=== PATIENT | female | born 1965 | race Caucasian/White ===

== ENCOUNTER 2022-01-12 12:19 | Emergency (ER) | payer BC ==
[2022-01-12 12:56] VITALS: O2SAT 98
[2022-01-12] MEDS ORDERED: Adacel Vial IM ONE ×2 (12:56→13:30)
[2022-01-12] MEDS ORDERED: Zofran 4 MG/2 ML VIAL IV ONE (12:56)
[2022-01-12] MEDS ORDERED: MORPHINE SULFATE 4 MG INJ IV ONE (12:56)
[2022-01-12] MEDS ORDERED: XYLOCAINE 1% HCL 20 ML MDV IJ ONE (12:56)
--- NOTE | 2022-01-12 12:56 | ERPHSYRPT ---
- History of Present Illness Time Seen by Provider: 01/12/22 12:51 Source: patient, family Exam Limitations: no limitations Physician History: pt fell against umbrella stand with large lac left anterior huitron, neurovasc. and nonbtender without luisa stepoff. kristen le to see all tendons without exploration but function is intact with good extension. no other complaints of injury. Method of Injury: fell Occurred: just prior to arrival Quality: constant, sharpness Severity of Pain-Max: moderate Severity of Pain-Current: moderate Lower Extremities Pain: leg: right Modifying Factors: Improves With: immobilization, movement Associated Symptoms: none Allergies/Adverse Reactions: Iodinated Contrast Media Allergy (Verified 01/12/22 13:06) Sulfa (Sulfonamide Antibiotics) Allergy (Verified 01/12/22 13:06) Home Medications: Atorvastatin Calcium [Lipitor] 40 mg PO DAILY 01/12/22 [History] Bupropion HCl Xl 150 mg [Wellbutrin XL 150 MG] 150 mg PO DAILY 01/12/22 [History] Dupilumab [Dupixent Syringe] 300 mg SQ WEEKLY 01/12/22 [History] Levothyroxine Sodium 75 Mcg [Synthroid 75 Mcg] 75 mcg PO DAILY 01/12/22 [History] Liothyronine Sodium 5 mcg PO DAILY 01/12/22 [History] Montelukast Sodium 10 mg [Singulair 10 MG] 10 mg PO DAILY 01/12/22 [History] Potassium Chloride [Klor-Con] 20 meq PO DAILY 01/12/22 [History] Hx Tetanus, Diphtheria Vaccination/Date Given: Yes Hx Influenza Vaccination/Date Given: No Hx Pneumococcal Vaccination/Date Given: No Immunizations Up to Date: No - Review of Systems Constitutional: No Fever, No Chills Eyes: No Symptoms Ears, Nose, & Throat: No Symptoms Respiratory: No Cough, No Dyspnea Cardiac: No Chest Pain, No Edema, No Syncope Abdominal/Gastrointestinal: No Abdominal Pain, No Nausea, No Vomiting, No Diarrhea Genitourinary Symptoms: No Dysuria Musculoskeletal: No Back Pain, No Neck Pain Skin: Other (lac), No Rash Neurological: No Dizziness, No Focal Weakness, No Sensory Changes Psychological: No Symptoms Endocrine: No Symptoms Hematologic/Lymphatic: No Symptoms Immunological/Allergic: No Symptoms All Other Systems: Reviewed and Negative - Past Medical History Pertinent Past Medical History: No - Nursing Vital Signs Nursing Vital Signs: Initial Vital Signs Temperature 98.4 F 01/12/22 12:51 Pulse Rate 72 01/12/22 12:51 Blood Pressure 156/81 01/12/22 12:51 O2 Sat by Pulse Oximetry 98 01/12/22 12:51 Pain Scale Pain Intensity 7 - Physical Exam General Appearance: alert Eyes, Ears, Nose, Throat Exam: moist mucous membranes Neck Exam: non-tender, supple Cardiovascular/Respiratory Exam: chest non-tender, normal breath sounds, regular rate/rhythm, no respiratory distress Gastrointestinal/Abdominal Exam: non-tender, guarding Back Exam: normal inspection, No vertebral tenderness Hips Exam: bilateral: non-tender, normal inspection, normal range of motion, no evidence of injury Legs Exam: right leg: soft tissue tenderness, left leg: normal inspection, no evidence of injury, bilateral leg: non-tender, normal range of motion Knees Exam: bilateral knee: non-tender, normal inspection, normal range of motion, no evidence of injury Ankle Exam: bilateral ankle: non-tender, normal inspection, normal range of motion, no evidence of injury Foot Exam: bilateral foot: non-tender, normal inspection, normal range of motion, no evidence of injury DTR - Lower Extremities Exam: knee (R): 2+, knee (L): 2+, ankle (R): 2+, ankle (L): 2+ Neuro/Tendon Exam: normal sensation, normal motor functions Mental Status Exam: alert, oriented x 3, cooperative Skin Exam: normal color, warm, dry SpO2 Interpretation: normal SpO2: 98 O2 Delivery: Room Air Ordered Tests: Active Orders 24 hr Category Date Time Status IV Insertion STAT Care 01/12/22 12:56 Completed Wound Care ROUTINE Care 01/12/22 12:56 Completed Medication Summary Discontinued Medications Generic Name Dose Route Start Last Admin Trade Name Guido PRN Reason Stop Dose Admin Bupivacaine HCl Confirm 01/12/22 17:05 Bupivacaine Hcl/Pf 50 Mg/10 Ml Vial Administered 01/12/22 17:06 Dose 100 mg IJ .STK-MED ONE Cefazolin Sodium Confirm 01/12/22 17:08 Cefazolin Sodium 1 Gm Vial Administered 01/12/22 17:09 Dose 1 g .ROUTE .STK-MED ONE Cefazolin Sodium Confirm 01/12/22 17:08 Cefazolin Sodium 1 Gm Vial Administered 01/12/22 17:09 Dose 1 g .ROUTE .STK-MED ONE Dexamethasone Sodium Phosphate Confirm 01/12/22 16:20 Dexamethasone Sod Phosphate 4 Mg/Ml Ml Administered 01/12/22 16:21 Dose 4 mg .ROUTE .STK-MED ONE Dexmedetomidine/Sodium Chloride Confirm 01/12/22 16:25 Dexmedetomidine In 0.9 % Nacl 80 Mcg/20 Ml Vial Administered 01/12/22 16:26 Dose 80 mcg IV .STK-MED ONE Diphtheria/Tetanus/Acell Pertussis 0.5 ml 01/12/22 12:56 01/12/22 13:36 Tdap --Diph,Pertuss(Acell),Tet Vac/Pf 0.5 Ml Vial IM 01/12/22 12:57 0.5 ml .ONCE ONE Administration Diphtheria/Tetanus/Acell Pertussis Confirm 01/12/22 13:30 Tdap --Diph,Pertuss(Acell),Tet Vac/Pf 0.5 Ml Vial Administered 01/12/22 13:31 Dose 0.5 ml IM .STK-MED ONE Ephedrine Sulfate Confirm 01/12/22 17:31 Ephedrine Sulfate 50 Mg/Ml Administered 01/12/22 17:32 Dose 50 mg .ROUTE .STK-MED ONE Fentanyl Citrate Confirm 01/12/22 16:20 Fentanyl Citrate 100 Mcg/2 Ml* Vial Administered 01/12/22 16:21 Dose 100 mcg .ROUTE .STK-MED ONE Sodium Chloride 1,000 mls @ 100 mls/hr 01/12/22 13:00 01/12/22 13:35 Sodium Chloride 0.9% 1000 Ml IV 02/11/22 12:59 100 mls/hr .Q10H SERENE Administration Cefazolin Sodium/Dextrose 1 gm in 50 mls @ 100 mls/hr 01/12/22 12:57 01/12/22 14:13 Kefzol 1 Gm/50 Ml Premix IV 01/12/22 13:26 Infused STAT STA Infusion Cefazolin Sodium/Dextrose Confirm 01/12/22 13:29 Kefzol 1 Gm/50 Ml Premix Administered 01/12/22 13:30 Dose 1 gm in 50 mls @ ud IV .STK-MED ONE Acetaminophen Confirm 01/12/22 16:25 Ofirmev Administered 01/12/22 16:26 Dose 100 mls @ ud IV .STK-MED ONE Cefazolin Sodium/Dextrose Confirm 01/12/22 17:11 Cefazolin 2 Gm-D5w Bag Administered 01/12/22 17:12 Dose 2 gm in 50 mls @ ud IV .STK-MED ONE Gentamicin Sulfate/Sodium Chloride Confirm 01/12/22 17:11 Gentamicin 80 Mg/50 Ml Premix Administered 01/12/22 17:12 Dose 80 mg in 50 mls @ ud IV .STK-MED ONE Lactated Ringer's Confirm 01/12/22 18:40 Lactated Ringers Administered 01/12/22 18:41 Dose 1,000 mls @ ud IV .STK-MED ONE Sodium Chloride Confirm 01/12/22 13:29 Sodium Chloride 0.9% 1000 Ml Administered 01/12/22 13:30 Dose 1,000 mls @ ud .ROUTE .STK-MED ONE Ketorolac Tromethamine Confirm 01/12/22 18:39 Ketorolac Tromethamine 30 Mg/Ml Inj Administered 01/12/22 18:40 Dose 30 mg .ROUTE .STK-MED ONE Lidocaine HCl 5 ml 01/12/22 12:56 Lidocaine Hcl 1% 20 Ml Mdv 20 Ml Ml IJ 01/12/22 12:57 STAT ONE Lidocaine HCl Confirm 01/12/22 16:20 Lidocaine - Mpf 2% 5 Ml Vial Administered 01/12/22 16:21 Dose 5 ml .ROUTE .STK-MED ONE Lidocaine HCl Confirm 01/12/22 16:25 Lidocaine Hcl 4 Ml Solution (Lta Kit) Administered 01/12/22 16:26 Dose 4 ml TP .STK-MED ONE Lidocaine HCl Confirm 01/12/22 17:05 Lidocaine Hcl 1% 20 Ml Mdv 20 Ml Ml Administered 01/12/22 17:06 Dose 1 ml .ROUTE .STK-MED ONE Midazolam HCl Confirm 01/12/22 16:20 Midazolam Hcl 2 Mg/2 Ml Vial Administered 01/12/22 16:21 Dose 2 mg .ROUTE .STK-MED ONE Morphine Sulfate 4 mg 01/12/22 12:56 01/12/22 13:37 Morphine Sulfate 4 Mg/Ml Injection IV 01/12/22 12:57 4 mg STAT ONE Administration Morphine Sulfate Confirm 01/12/22 13:29 Morphine Sulfate 4 Mg/Ml Injection Administered 01/12/22 13:30 Dose 4 mg .ROUTE .STK-MED ONE Ondansetron HCl 4 mg 01/12/22 12:56 01/12/22 13:37 Ondansetron Hcl 4 Mg/2 Ml Vial IV 01/12/22 12:57 4 mg STAT ONE Administration Ondansetron HCl Confirm 01/12/22 13:29 Ondansetron Hcl 4 Mg/2 Ml Vial Administered 01/12/22 13:30 Dose 4 mg .ROUTE .STK-MED ONE Ondansetron HCl Confirm 01/12/22 16:20 Ondansetron Hcl 4 Mg/2 Ml Vial Administered 01/12/22 16:21 Dose 4 mg .ROUTE .STK-MED ONE Ondansetron HCl Confirm 01/12/22 18:38 Ondansetron Hcl 4 Mg/2 Ml Vial Administered 01/12/22 18:39 Dose 4 mg .ROUTE .STK-MED ONE Ondansetron HCl 12 mg 01/12/22 20:27 Zofran 4 Mg/Udtablet Orally Disintegrating PO 02/11/22 20:26 Q6H PRN PRN NAUSEA/VOMITING Oxycodone/Acetaminophen 3 tab 01/12/22 20:25 Oxycodone / Apap 10/325 Mg 1 Tablet PO 01/12/22 20:26 SENT HOME W/ PATIENT STA Oxycodone/Acetaminophen Confirm 01/12/22 20:36 Oxycodone / Apap 10/325 Mg 1 Tablet Administered 01/12/22 20:37 Dose 3 tab .ROUTE .STK-MED ONE Propofol Confirm 01/12/22 16:20 Propofol 10 Mg/Ml 20ml Vial Administered 01/12/22 16:21 Dose 200 mg IV .STK-MED ONE Succinylcholine Chloride Confirm 01/12/22 16:20 Succinylcholine Chloride 200mg/10 Ml Vial Administered 01/12/22 16:21 Dose 80 mg .ROUTE .STK-MED ONE - Progress Progress: improved, re-examined Progress Note: 01/13/22 05:55 Dr. Pretty was contacted and took pt to OR to repair this laceration there then she was discharged to home with prescriptions by him. Discussed with : Other (Dr. Pretty) Will see patient in: ED, other (OR) Counseled pt/family regarding: lab results, diagnosis, need for follow-up - Departure Departure Disposition: Home Clinical Impression: Wound of right lower extremity, Soft tissue injury of right lower leg Condition: Good Critical Care Time: No Referrals: KARLY PEDERSON PIE TOPPER [Primary Care Provider] - Follow up/PCP as directed Instructions: Surgical Wound (DC), Wound Care (DC), Laceration Repair With Stitches (DC) Additional Instructions: followup with PMD and Dr. Pretty return meantime if any concerns.
[2022-01-12] MEDS ORDERED: KEFZOL 1 GM/50 ML PREMIX** 1 GM/50 ML IVPB IV STA (12:57)
[2022-01-12] MEDS ORDERED: Sodium Chloride 0.9% 1000 ML 1,000 ML IV SCH (13:00)
[2022-01-12 13:06] VITALS: BP 156/81
[2022-01-12] MEDS ORDERED: MORPHINE SULFATE 4 MG INJ ONE (13:29)
[2022-01-12] MEDS ORDERED: KEFZOL 1 GM/50 ML PREMIX** 1 GM/50 ML IVPB IV ONE (13:29)
[2022-01-12] MEDS ORDERED: Sodium Chloride 0.9% 1000 ML 1,000 ML ONE (13:29)
[2022-01-12] MEDS ORDERED: Zofran 4 MG/2 ML VIAL ONE ×3 (13:29→18:38)
[2022-01-12] MEDS ORDERED: Versed 2 MG/2 ML Injection ONE (16:20)
[2022-01-12] MEDS ORDERED: Quelicin Fliptop 200 MG/10 ML ONE (16:20)
[2022-01-12] MEDS ORDERED: Xylocaine-Mpf 2% 5 Ml Vial ONE (16:20)
[2022-01-12] MEDS ORDERED: DIPRIVAN 200 MG/20 ML IV ONE (16:20)
[2022-01-12] MEDS ORDERED: Decadron 4 MG INJ ONE (16:20)
[2022-01-12] MEDS ORDERED: SUBLIMAZE 100 MCG/2 ML ONE (16:20)
[2022-01-12] MEDS ORDERED: DEXMEDETOMIDINE 80 MCG/20ML-NS IV ONE (16:25)
[2022-01-12] MEDS ORDERED: Pre-Attached Lta Kit TP ONE (16:25)
[2022-01-12] MEDS ORDERED: OFIRMEV 100 ML IV ONE (16:25)
--- NOTE | 2022-01-12 16:28 | PCM.CONS ---
Podiatry HPI - Consult Date of Consultation Date: 01/12/22 Reason for Consult: Full thickness laceration to right LE Consulting Provider: ANA LUISA DARLING DPM - [facility] History of Present Illness: Stephanie is a very pleasant 56-year-old female accompanied by her and daughter at bedside in the emergency department resting comfortably on presentation. Patient indicates that she was out of the house doing some gardening when she fell onto an umbrella stand resulting in a laceration to the anterior tibial huitron. Patient indicates that the full-thickness flap was flapped proximally. Patient's initial reaction was to return to the house flap the skin back into its original position and wrap it with a kitchen towel. She indicates she has a longstanding history of use of prednisone due to sarcoidosis that is led to weakening of her skin. 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 She currently denies any constitutional symptoms of infection. She denies any other pedal complaints at this time Medications & Allergies Home Medications: Home Medication List Atorvastatin Calcium [Lipitor] 40 mg PO DAILY 01/12/22 [History Confirmed 01/12/22] Bupropion HCl Xl 150 mg [Wellbutrin XL 150 MG] 150 mg PO DAILY 01/12/22 [History Confirmed 01/12/22] Dupilumab [Dupixent Syringe] 300 mg SQ WEEKLY 01/12/22 [History Confirmed 01/12/22] Levothyroxine Sodium 75 Mcg [Synthroid 75 Mcg] 75 mcg PO DAILY 01/12/22 [History Confirmed 01/12/22] Liothyronine Sodium 5 mcg PO DAILY 01/12/22 [History Confirmed 01/12/22] Montelukast Sodium 10 mg [Singulair 10 MG] 10 mg PO DAILY 01/12/22 [History Confirmed 01/12/22] Potassium Chloride [Klor-Con] 20 meq PO DAILY 01/12/22 [History Confirmed 01/12/22] Allergies/Adverse Reactions: Allergies Allergy/AdvReac Type Severity Reaction Status Date / Time Iodinated Contrast Media Allergy Verified 01/12/22 13:06 Sulfa (Sulfonamide Allergy Verified 01/12/22 13:06 Antibiotics) - Past Medical History Past Medical History: No Cardiac History: High Cholesterol Endocrine Medical History: Hypothyroidism Comment: sarcadoisis - Past Surgical History Past Surgical History: Yes Cardiac History: Pacemaker Female Surgical History: Hysterectomy - Social History Smoking Status: Never smoker Exposure to second hand smoke: No Alcohol: Occasionally Drug Use: none Physical Exam - General General Appearance: no apparent distress - Neuro Neurologic: Epicritic and protopathic - Vascular Peripheral Pulses: Posterior tibialis: 2+, Dorsalis-Pedis: 2+ Capillary Refill Time: Immediate Hair Growth: Symmetrical and Bilateral Varicosities: Negtive Edema: None - Muscular Muscle Strength: 5/5 on all 4 quadrants Digital Deformity: no digital deformities - Narrative Narrative Physical Exam: Podiatry Physical Exam Dermatological exam demonstrating a large full-thickness skin flap. V shaped with apex distally. Wound is down to the level of the periosteum of the tibia. Exposed subcutaneous tissue. Light debris identified. Skin quality with thinness of the epidermis secondary to prolonged use of prednisone with evidence of brawny edema to the bilateral lower extremity. Scant varicosities noted Assessment/Plan (1) Noninfected skin tear of right lower extremity Current Visit: Yes Status: Acute Assessment & Plan: Initial patient examination evaluation. Patient's laceration is full-thickness and down to the level of the bone and is a dirty wound due to environmental factors. Patient would benefit from a trip to the OR with irrigation debridement and an attempt at primary closure patient understands that there is still a risk for infection of the extremity given the nature of the wound. Emergency department was quick to administer antibiotics on arrival. Tetanus status was assessed Patient understands all risks complications and benefits of surgical intervention include but not limited to infection, hematoma, seroma, possible delayed healing. Possibility of unsuccessful surgical intervention and possible need for further surgical intervention at a later date. She understands all this and plenty of time was allowed for questions to be asked which were answered to the patient's apparent satisfaction. Patient will be discharged following surgical intervention Code(s): S81.811A - LACERATION W/O FOREIGN BODY, RIGHT LOWER LEG, INIT ENCNTR (2) Wound of right lower extremity Current Visit: Yes Status: Acute Code(s): S81.801A - UNSPECIFIED OPEN WOUND, RIGHT LOWER LEG, INITIAL ENCOUNTER (3) Soft tissue injury of right lower leg Current Visit: Yes Status: Acute Code(s): S89.91XA - UNSPECIFIED INJURY OF RIGHT LOWER LEG, INITIAL ENCOUNTER (4) Chronic steroid use Current Visit: Yes Status: Acute Code(s): [id number] - (5) Sarcoidosis Current Visit: Yes Status: Acute Code(s): D86.9 - SARCOIDOSIS, UNSPECIFIED
[2022-01-12 16:47] VITALS: PULSE 98
[2022-01-12] MEDS ORDERED: BUPIVACAINE 0.5% VIAL IJ ONE (17:05)
[2022-01-12] MEDS ORDERED: XYLOCAINE 1% HCL 20 ML MDV ONE (17:05)
[2022-01-12] MEDS ORDERED: KEFZOL 1 GM ONE ×2 (17:08)
[2022-01-12] MEDS ORDERED: CEFAZOLIN 2 GM-D5W BAG** 2 GM/50 ML ML IV ONE (17:11)
[2022-01-12] MEDS ORDERED: GENTAMICIN 80 MG/50 ML PREMIX*** 80 MG/50 ML ML IV ONE (17:11)
[2022-01-12] MEDS ORDERED: Ephedrine Sulfate 50 MG/ML ONE (17:31)
[2022-01-12] MEDS ORDERED: TORAdol 30 mg Injection ONE (18:39)
[2022-01-12] MEDS ORDERED: Lactated Ringers 1,000 ML IV ONE (18:40)
[2022-01-12] MEDS ORDERED: OXYCODONE-ACETAMINOPHEN 10-325 PO STA (20:25)
[2022-01-12] MEDS ORDERED: ZOFRAN ODT 4 MG PO PRN (20:27)
[2022-01-12] MEDS ORDERED: OXYCODONE-ACETAMINOPHEN 10-325 ONE (20:36)
[2022-01-12] MEDS ORDERED: ZOFRAN ODT 4 MG ONE (20:36)
--- NOTE | 2022-01-14 13:36 | OP ---
SURGERY DATE/TIME: 01/12/2022 1656 PREOPERATIVE DIAGNOSES: 1) Traumatic full thickness skin tear right lower extremity. 2) Exposed bone with laceration. 3) Sarcoidosis. 4) Dirty wound. POSTOPERATIVE DIAGNOSES: 1) Traumatic full thickness skin tear right lower extremity. 2) Exposed bone with laceration. 3) Sarcoidosis. 4) Dirty wound. PROCEDURE: Irrigation, debridement with complex closure of right leg wound. SURGEON: Sukhwinder Griggs DPM. COLLAR FOLDER OPERATOR: None. ANESTHESIA: General. See injectables. HEMOSTASIS: Pressure dressing. ESTIMATED BLOOD LOSS: Less than 10 cc. MATERIALS: 3-0 Nylon, 2-0 Nylon, suture guard. INJECTABLES: 30 cc of 1:1 mixture of 1% lidocaine plain and 0.5% bupivacaine plain injected in a V-block type fashion proximal to the wound. INDICATION FOR SURGERY: Faustina is a very pleasant 56-year-old female who was earlier today planting her garden. The patient went outside of her home and fell forward onto an umbrella stand resulting in a significant laceration to the anterior aspect of the leg. The patient indicates she was able to see bone initially. She took the skin flap and flapped it down and ran back into the house where she applied a dish towel to the lower extremity. The patient was urged to present to the emergency department by her family where at that time a call was made to me. On presentation the patient's wound was flapped over and exposed bone was obvious with some soft tissue contraction of the proximal flap. The flap did appear to have some light debris. The patient is in somewhat of a state of shock and does not realize the degree of the injury that she sustained. However after a discussion with her, she understands that this is a surgical issue due to the fact this is a dirty wound and there is a significant full thickness flap down to the layer of the tibial bone. The patient understands all risks, complications and benefits of surgical intervention at this time including but not limited to possibility of infection, hematoma, seroma, possibility of need for surgical intervention at a later date discussed with her at length due to the possibility of loss of soft tissue secondary to necrosis. Attempts will be made to keep tension off of the healing wound edges. However, noncompliance with the postoperative nonweight bearing protocol is not recommended due to the fact that edema can cause dehiscence of the wound. The best case scenario discussed with the patient if this heals, we do not require a staged procedure of any grafting however this is a possibility. She understands all of this and wishes to proceed with surgical intervention at this time. DESCRIPTION OF PROCEDURE AND FINDINGS: At this time the patient is brought into the OR and placed on the OR table. A general anesthesia was administered until the patient was sedated. The right lower extremity was then prepped and draped in the typical sterile fashion and the extremity was lowered onto the surgical field. At this time the flap was elevated and explored. At this time a combination of rongeurs, curettes, and a 15 blade were utilized to incise the skin edges and debride any of the free portions of debris within the wound as well as incise the edge of the wound for healthy bleeding edge. At this time, a culture was taken and was handed off the field for microbiological assessment. At this time, a 3 liter bag of sterile saline was utilized with a Pulsavac in order to irrigate the area and wash away any of the debris and potential infectious agents. Following this suture guard retention device was applied at the apex and the medial and lateral aspects of the flap. 2-0 Nylon was utilized to reapproximate the edges under no tension whatsoever. The remaining incision was then coapted utilizing a combination of horizontal mattress and simple interrupted sutures in order to reapproximate the skin edges. At this time the leg was cleansed. Iodine was applied to the incision site and a dressing consisting of Betadine, Adaptic, 4x4, Kerlix and GREG was applied to the right lower extremity. The patient was then reversed from anesthesia and returned to postoperative anesthesia care unit with vital signs stable and vascular status intact. The patient handled the procedure as well as the anesthesia without significant complication. Postoperative orders as indicated in the patient's discharge chart.
== END 2022-01-12 19:32 | disposition home or self-care (01) ==
LOC: ED 12:19
DX: S81.812A Laceration without foreign body, left lower leg, initial encounter (principal); W19.XXXA Unspecified fall, initial encounter; D86.9 Sarcoidosis, unspecified
CPT/HCPCS: 36000; 87046; 87070; 87075; 87116; 87205; 87206; 90471; 90715; 96365; 96374; 96375; 99140; 99215; 99284; J0330; J0690; J1100; J1580; J1885; J2250; J2270; J2405; J2704; J3010; Q0162; A9270-GY

== ENCOUNTER 2022-01-31 06:35 | Day surgery (SDC) | payer BC ==
[~2022-01-31 06:35] MED LIST: BUPIVACAINE 0.5% VIAL IJ ONE; Lactated Ringers 1,000 ML IV ONE; XYLOCAINE 1% HCL 20 ML MDV ONE
[2022-01-31] MEDS ORDERED: CEFAZOLIN 2 GM-D5W BAG** 2 GM/50 ML ML IV SCH (07:00)
[2022-01-31] MEDS ORDERED: Lactated Ringers 1,000 ML IV SCH (07:00)
[2022-01-31] MEDS ORDERED: Versed 2 MG/2 ML Injection IV PRN (11:17)
[2022-01-31] MEDS ORDERED: Pre-Attached Lta Kit TP ONE (11:45)
[2022-01-31] MEDS ORDERED: DEXMEDETOMIDINE 80 MCG/20ML-NS IV ONE (11:45)
[2022-01-31] MEDS ORDERED: OFIRMEV 100 ML IV ONE (11:45)
[2022-01-31] MEDS ORDERED: DIPRIVAN 200 MG/20 ML IV ONE (11:48)
[2022-01-31] MEDS ORDERED: Quelicin Fliptop 200 MG/10 ML ONE (11:48)
[2022-01-31] MEDS ORDERED: Decadron 4 MG INJ ONE (11:48)
[2022-01-31] MEDS ORDERED: Zofran 4 MG/2 ML VIAL ONE (11:48)
[2022-01-31] MEDS ORDERED: Xylocaine-Mpf 2% 5 Ml Vial ONE (11:48)
[2022-01-31] MEDS ORDERED: SUBLIMAZE 100 MCG/2 ML ONE ×2 (11:50→13:24)
[2022-01-31] MEDS ORDERED: Ephedrine Sulfate 50 MG/ML ONE (12:04)
[2022-01-31 14:13] VITALS: O2SAT 93
[2022-01-31 14:44] VITALS: BP 142/82; PULSE 72
--- NOTE | 2022-02-04 11:40 | OP ---
SURGERY DATE: 01/31/2022 SURGERY TIME: 114 PREOPERATIVE DIAGNOSIS: 1. RIGHT DEGLOVING INJURY. 2. EXPOSED BONE. 3. NECROSING SKIN EDGES. 4. NONVIABLE SOFT TISSUE. POSTOPERATIVE DIAGNOSIS: 1. RIGHT DEGLOVING INJURY. 2. EXPOSED BONE. 3. NECROSING SKIN EDGES. 4. NONVIABLE SOFT TISSUE. PROCEDURE: 1. Right wound debridement to the level of muscle. Wound measurement is 9.0 X 11.6. 2. Application of synthetic skin substitute/Integra. 3. Application of a negative pressure wound vac therapy. SURGEON: Sukhwinder Griggs D.P.M. TEXTURE ARTIST: None. ANESTHESIA: General plus a postoperative local block. See injectables for details. HEMOSTASIS: A pressure dressing. ESTIMATED BLOOD LOSS: Less than 10 cc. MATERIALS: Medela wound vac, Integra for inch by 5 inch synthetic skin substitute, 3-0 Nylon. INJECTABLES: 20 cc of 1:1 mixture of 1% Lidocaine plain and 0.5% Bupivicaine plain in a V- type fashion proximal to the surgical site. INDICATIONS FOR PROCEDURE: Faustina is a very pleasant 56 y/o female who present, who is known to my service, and is in the 2nd stage of a procedure at this time. On , the patient fell onto an umbrella stand that resulted in the degloving injury and leaving exposed bone. The soft tissue was at that time apparently viable and the attempt for a closure was made. At this time and early on within the process, demarcation occurred to the flap which doomed us to a 2nd procedure. This was always a possibility which was discussed with the patient, however. The attempt was made to revascularize the adipofascial layer beneath the surface of the skin which was a possibility during this procedure. Patient wishes to proceed at this time understanding all risks, complications, and benefits of surgical intervention at this time including, but not limited to, delayed wound healing; non-wound healing; possibility of bone infection; possibility of infection, hematoma, or seroma. With all this, she wishes to proceed. Prior to surgical intervention, patient understood that once the skin was debrided and the nonviable tissue was removed, there was a possibility that we may have to perform an adipofascial or a hemisoleus flap in order to gain adequate coverage over tendon and bone. Patient wished to proceed no matter what the situation. Plenty of time was allowed for the patient to ask questions which were answered to the patient's apparent satisfaction. At this time, it is with that we decided to proceed. DESCRIPTION OF PROCEDURE: The patient was brought into the OR and placed on the OR table in the supine position. At this time, general anesthesia was administered until the patient was sedated. A thigh tourniquet was applied to the patient's right lower extremity and the tourniquet was set to 350 mm Hg. This was placed as a safety net. However, was not inflated throughout the procedure. At this time, the right leg was prepped and draped in typical sterile fashion and lowered onto the surgical field. At this time, all sutures were removed from the incision. The proximal 3 cm of the flap was viable. However, the distal aspect of this flap was not viable. Utilizing the 15 blade, the wound was incised until there was a healthy bleeding edge. Following this, the portion of the wound that was open measured 9.0 X 11.6 cm. Initially, the wound measured 13 cm on each limb with the most significant amount of necrosis at the distal tip of the apical flap. At this time, the wound was debrided utilizing a combination of sharp and blunt dissection. It is to be noted at this time that the adipofascial layer of the wound did heal at this time and there was no residual exposed bone. At this time, the decision to proceed without obtaining a posterior tibial or peroneal adipofascial flap was made. The necessity for a hemisoleus flap was then determined at this time to be unnecessary as well. At this time, copious amounts of sterile saline were utilized under lower pressure irrigation in order to flush the surgical site. At this time, the nonviable and necrotic tissue was removed and then flushed once again utilizing 3 liters under pulse irrigation. Following this, an Integra 4" X 5" synthetic skin substitute was approximated utilizing 3-0 Nylon to the wound. Any of the edges that overhung were cut off and the Integra flap was scraped and placed underneath the graft in order to preserve the product and increase the efficacy. At this time, a negative pressure wound vac therapy was applied in order to increase the chance of take over the course of the next several weeks. At this time, the wound vac was set to 150 mm Hg pressure and continuous and checked for leaks which were not appreciated. A 20 cc block of a 1:1 mixture of 1% Lidocaine plain and 0.5% Bupivicaine plain was injected in a V type fashion just proximal to the surgical wound. A dressing consisting of 2 gauze, Kerlex, and Donn was applied to the patient's right lower extremity. The patient then was reversed from anesthesia and returned to the PACU with vital signs stable and vascular status intact. The patient handled the anesthesia as well as the procedure without significant complication. Postoperative orders as indicated in the patient's discharge chart.
== END 2022-01-31 14:30 | disposition home or self-care (01) ==
LOC: SDC 06:35
PROVIDERS: ATTEND Podiatrist Foot & Ankle Surgery
DX: S81.811D Laceration without foreign body, right lower leg, subsequent encounter (principal); M89.9 Disorder of bone, unspecified; I96 Gangrene, not elsewhere classified; M79.89 Other specified soft tissue disorders; M79.604 Pain in right leg
CPT/HCPCS: J0330; J0690; J1100; J2250; J2405; J2704; J3010

== ENCOUNTER 2022-02-14 06:07 | Day surgery (SDC) | payer BC ==
[2022-02-14] MEDS ORDERED: Pre-Attached Lta Kit TP ONE (06:48)
[2022-02-14] MEDS ORDERED: OFIRMEV 100 ML IV ONE (06:48)
[2022-02-14] MEDS ORDERED: XYLOCAINE 1% HCL 20 ML MDV ONE (06:49)
[2022-02-14] MEDS ORDERED: Zofran 4 MG/2 ML VIAL ONE (06:51)
[2022-02-14] MEDS ORDERED: DIPRIVAN 200 MG/20 ML IV ONE ×2 (06:51→09:12)
[2022-02-14] MEDS ORDERED: Decadron 4 MG INJ ONE ×2 (06:51→08:31)
[2022-02-14] MEDS ORDERED: Xylocaine-Mpf 2% 5 Ml Vial ONE (06:51)
[2022-02-14] MEDS ORDERED: Quelicin Fliptop 200 MG/10 ML ONE (06:51)
[2022-02-14] MEDS ORDERED: Versed 2 MG/2 ML Injection ONE (06:53)
[2022-02-14] MEDS ORDERED: SUBLIMAZE 100 MCG/2 ML ONE ×2 (06:53→09:33)
[2022-02-14] MEDS ORDERED: Lactated Ringers 1,000 ML IV SCH (07:00)
[2022-02-14] MEDS ORDERED: CEFAZOLIN 2 GM-D5W BAG** 2 GM/50 ML ML IV SCH (07:00)
[2022-02-14] MEDS ORDERED: Transderm Scop 1.5MG Patch ONE (07:09)
[2022-02-14] MEDS ORDERED: DEXMEDETOMIDINE 80 MCG/20ML-NS IV ONE (07:19)
[2022-02-14] MEDS ORDERED: Naropin 0.5% 30 ML VIAL ONE (08:31)
[2022-02-14] MEDS ORDERED: Hydromorphone 1 mg/ml Injection ONE (09:56)
[2022-02-14] MEDS ORDERED: Ephedrine Sulfate 50 MG/ML ONE (10:34)
[2022-02-14 10:49] VITALS: O2SAT 97
[2022-02-14] MEDS ORDERED: NORCO 5/325 MG PO PRN (10:49)
[2022-02-14 13:43] VITALS: BP 135/87; PULSE 85
--- NOTE | 2022-02-14 13:47 | OP ---
SURGERY DATE/TIME: 02/14/2022 0716 PREOPERATIVE DIAGNOSES: 1) Traumatic injury to middle third of right leg. 2) Exposed bone. 3) Failed graft. 4) Exposed adipofascial tissue. POSTOPERATIVE DIAGNOSES: 1) Traumatic injury to middle third of right leg. 2) Exposed bone. 3) Failed graft. 4) Exposed adipofascial tissue. PROCEDURES: 1) Debridement of wound measuring 11 x 6.6 cm. 2) Hemisoleus muscle flap. 3) Application of Integra synthetic skin substitute. SURGEON: Sukhwinder Griggs DPM. YARD BRAKEMAN: None. ANESTHESIA: General. HEMOSTASIS: Thigh tourniquet set to 300 mm of Mercury for 8 minutes during the procedure. ESTIMATED BLOOD LOSS: Less than 20 cc. MATERIALS: Integra 4x5 synthetic skin substitute, 2-0 Monocryl, 3-0 Nylon. INJECTABLES: See anesthesia report for details. DESCRIPTION OF PROCEDURE AND FINDINGS: The patient is brought into the OR and placed on the OR table in supine position. At this time general anesthesia was administered to the right lower extremity. Dressing was taken down and a well-padded thigh tourniquet was applied to the patient's right lower extremity. The right lower extremity was prepped and draped in the typical sterile fashion. At this time attention was directed to the wound where the measurements were 11 x 6.6 cm. Debridement was performed utilizing a combination of curettes, rongeurs, sharp and blunt dissection. The distal last 7 cm was not healthy bleeding tissue so the decision was made to proceed with hemisoleus flap. An incision was made two finger breadths posterior to the tibia at the medial posterior aspect of the right calf. At this time the fascia was incised and deepened along the plane between the gastrocnemius muscle belly and the soleus. The soleus was found and the central raphe was identified and incision was made at the distal aspect of the muscle belly following it and being careful not to violate any perforators that came from the deep compartment. Any ones that were encountered were tied off utilizing 2-0 Vicryl. At this time, the muscle was then tunneled underneath the surface of the skin and placed over the proximal three-quarters of the wound. This was secured utilizing 2-0 Vicryl in trauma stitch-type fashion. Following this, the site was cleansed with copious amounts of sterile saline. Integra synthetic skin graft was applied in the foot print of the wound itself and a dressing consisting of Betadine was applied to the wound however avoiding the graft. Adaptic, 4x4, cast padding and well-padded posterior splint with Sugar-Tong was applied to the right lower extremity. At this time, the patient was provided a popliteal block and returned to the postoperative anesthesia care unit with vital signs stable and vascular status intact. The patient handled the anesthesia as well as the procedure without significant complication. Postoperative orders as indicated in the patient's discharge chart.
== END 2022-02-14 11:25 | disposition home or self-care (01) ==
LOC: SDC 06:07
PROVIDERS: ATTEND Podiatrist Foot & Ankle Surgery
DX: S81.811D Laceration without foreign body, right lower leg, subsequent encounter (principal); M89.9 Disorder of bone, unspecified; T86.821 Skin graft (allograft) (autograft) failure; E65 Localized adiposity
CPT/HCPCS: 11042; 15271; 15738; 64450; 76937; 76942; J0330; J1100; J1170; J2250; J2405; J2704; J2795; J3010; A9270-GY